=== PATIENT | female | born 1970 | race Caucasian/White ===

== ENCOUNTER 2022-02-10 15:03 | Inpatient (IN) | payer MEDICARE, MEDICAID ==
[~2022-02-10] VITALS: Ht 152.4 cm; Wt 62.6 kg
[~2022-02-10 15:03] MED LIST: ATIVAN; TNFMISC
[2022-02-10] MEDS ORDERED: HALOPERIDOL 5 MG TABLET PO PRN (17:00)
[2022-02-10] MEDS ORDERED: LORazepam 2 MG TABLET PO PRN (17:00)
[2022-02-10] MEDS ORDERED: ACET-66 PO (17:07)
[2022-02-10] MEDS ORDERED: TRAZ-257 PO (17:07)
[2022-02-10 18:12] VITALS: BP 116/86
[2022-02-10] MEDS ORDERED: PNEUMOCOCCAL VACCINE POLYVALENT 0.5 ML VIAL [PPSV23] IM. ONE (18:45)
[2022-02-10 22:17] VITALS: BP 116/85
[2022-02-10 22:56] LABS: GLUCOMETER DEV NAME(LOC) POC.BV
[2022-02-11 05:28] VITALS: BP 113/82
[2022-02-11 07:15] LABS: BASOPHILS % (AUTO) 0.5 % (0.0-2.0); HEMATOCRIT 40.1 % (36-46); HEMOGLOBIN 13.6 g/dL (12.0-16.0); LYMPHOCYTES # (AUTO) 2.7 K/uL (1.0-4.8); LYMPHOCYTES % (AUTO) 39.8 % (22.0-44.0); MEAN CORPUSCULAR HEMOGLOBIN 31.8 pg (26.0-34.0); MEAN CORPUSCULAR HGB CONC 33.9 G/dL (31.0-37.0); MEAN CORPUSCULAR VOLUME 94 fL (80-100); MONOCYTES # (AUTO) 0.5 K/uL (0.1-1.0); MONOCYTES % (AUTO) 8.1 % (2.0-9.0); NEUTROPHILS # (AUTO) 3.4 K/uL (1.8-7.7); NEUTROPHILS % (AUTO) 50.6 % (40.0-70.0); PLATELET COUNT (AUTO) 194 K/uL (150-450); RED BLOOD CELL COUNT(AUTO) 4.28 MIL/uL (4.00-5.20); RED CELL DISTRIBUTION WIDTH 12.1 % (11.5-14.5)
[2022-02-11 07:25] LABS: HEMOGLOBIN A1C 7.3 % (3.8-5.6)
[2022-02-11 07:40] LABS: ALANINE AMINOTRANSFERASE 49 U/L (12-78); ALBUMIN 3.6 g/dL (3.4-5.0); ALKALINE PHOSPHATASE 73 U/L (46-116); ANION GAP 9 mmol/L (8-16); ASPARTATE AMINOTRANSFERASE 19 U/L (15-37); BILIRUBIN,TOTAL 0.6 mg/dL (0.1-1.0); CALCIUM, TOTAL 8.9 mg/dL (8.8-10.5); CARBON DIOXIDE 29 mmol/L (22-29); CHLORIDE 105 mmol/L (98-107); CHOL/HDL RATIO 3.6 (3.9-5.7); CHOLESTEROL 177 mg/dL (131-200); CREATININE 0.74 mg/dL (0.60-1.30); FREE T4 (FREE THYROXINE) 1.55 ng/dL (0.76-1.46); GLOMERULAR FILTR. RATE CALC > 60 mL/min (>60); GLUCOSE,RANDOM 137 mg/dL (70-110); HDL CHOLESTEROL 49 mg/dL (40-60); LDL CHOL (CALC.) 115 mg/dL (0-130); POTASSIUM 3.5 mmol/L (3.5-5.1); SODIUM SERUM 143 mmol/L (136-145); THYROID STIMULATING HORMONE 0.78 uIU/mL (0.36-3.74); TOTAL PROTEIN, SERUM 7.1 g/dL (6.4-8.2); TRIGLYCERIDES 66 mg/dL (15-150); UREA NITROGEN, BLOOD 13 mg/dL (7-18)
[2022-02-11 08:07] VITALS: BP 114/68
[2022-02-11] MEDS ORDERED: PETROLATUM,WHITE 28 GM JELLY TP PRN (08:45)
[2022-02-11] MEDS ORDERED: MAGNESIUM HYDROXIDE SUSPENSION 30 ML UDCUP PO PRN (08:45)
[2022-02-11] MEDS ORDERED: OMEPRAZOLE 20 MG CAPSULE PO PRN (08:45)
[2022-02-11] MEDS ORDERED: ACETAMINOPHEN 325 MG TABLET PO PRN (08:45)
[2022-02-11] MEDS ORDERED: MAG HYDROX/AL HYDROX/SIMETH ES 30 ML SUSPENSION UDCUP PO PRN (08:45)
[2022-02-11] MEDS ORDERED: BACITRACIN 28 GM OINTMENT TP PRN (08:45)
[2022-02-11] MEDS ORDERED: CloNIDine HCL 0.1 MG TABLET PO PRN (08:45)
[2022-02-11] MEDS ORDERED: IBUPROFEN 600 MG TABLET PO PRN (08:45)
[2022-02-11] MEDS ORDERED: ALBUTEROL SULFATE HFA 90 MCG/PUFF 8 GM INHALER IH PRN (08:45)
[2022-02-11] MEDS ORDERED: BENZOCAINE/MENTHOL LOZENGE PO PRN (08:45)
[2022-02-11] MEDS ORDERED: DOCUSATE SODIUM 100 MG CAPSULE PO PRN (08:45)
[2022-02-11] MEDS ORDERED: LOPERAMIDE HCL 2 MG CAPSULE PO PRN (08:45)
[2022-02-11] MEDS ORDERED: ONDANSETRON HCL 4 MG TABLET PO PRN (08:45)
[2022-02-11 16:12] VITALS: BP 130/66
[2022-02-11] MEDS ORDERED: GLUCAGON,HUMAN RECOMBINANT 1 MG VIAL IM PRN (23:45)
[2022-02-12 00:24] VITALS: BP 132/70
[2022-02-12 08:35] VITALS: BP 122/72
[2022-02-12 16:09] VITALS: BP 106/64
[2022-02-12 16:51] LABS: GLUCOMETER DEV NAME(LOC) BV2X.2; GLUCOSE,POINT OF CARE 204 MG/DL (70-110)
[2022-02-12] MEDS: INSULIN LISPRO 100 UNITS/ML SQ PRN ×2 (17:02→20:54)
[2022-02-12] MEDS: ZOLPIDEM TARTRATE 10 MG TABLET PO PRN (20:59)
[2022-02-12 21:01] LABS: GLUCOMETER DEV NAME(LOC) BV2X.2; GLUCOSE,POINT OF CARE 180 MG/DL (70-110)
[2022-02-13 06:25] VITALS: BP 101/60
[2022-02-13 06:36] LABS: GLUCOMETER DEV NAME(LOC) BV2X.2; GLUCOSE,POINT OF CARE 149 MG/DL (70-110)
[2022-02-13] MEDS: INSULIN LISPRO 100 UNITS/ML SQ PRN ×4 (07:12→20:27)
[2022-02-13 08:08] VITALS: BP 124/69
[2022-02-13 11:26] LABS: GLUCOMETER DEV NAME(LOC) BV2X.2; GLUCOSE,POINT OF CARE 152 MG/DL (70-110)
[2022-02-13 16:18] VITALS: BP 140/82
[2022-02-13 16:36] LABS: GLUCOMETER DEV NAME(LOC) BV2X.2; GLUCOSE,POINT OF CARE 166 MG/DL (70-110)
[2022-02-13] MEDS: ZOLPIDEM TARTRATE 10 MG TABLET PO PRN (20:24)
[2022-02-13 20:36] LABS: GLUCOMETER DEV NAME(LOC) BV2X.2; GLUCOSE,POINT OF CARE 179 MG/DL (70-110)
[2022-02-14 00:07] VITALS: BP 135/90
[2022-02-14] MEDS: INSULIN LISPRO 100 UNITS/ML SQ PRN ×4 (06:15→21:01)
[2022-02-14 06:21] LABS: GLUCOMETER DEV NAME(LOC) BV2X.2; GLUCOSE,POINT OF CARE 149 MG/DL (70-110)
[2022-02-14 08:13] VITALS: BP 130/69
[2022-02-14 11:21] LABS: GLUCOMETER DEV NAME(LOC) BV2X.2; GLUCOSE,POINT OF CARE 195 MG/DL (70-110)
[2022-02-14 16:05] VITALS: BP 118/76
[2022-02-14 17:05] LABS: GLUCOMETER DEV NAME(LOC) BV2X.2; GLUCOSE,POINT OF CARE 176 MG/DL (70-110)
[2022-02-14 21:11] LABS: GLUCOMETER DEV NAME(LOC) BV2X.2; GLUCOSE,POINT OF CARE 174 MG/DL (70-110)
[2022-02-15 07:02] VITALS: BP 138/62
[2022-02-15] MEDS: INSULIN LISPRO 100 UNITS/ML SQ PRN ×4 (07:12→20:25)
[2022-02-15 07:20] LABS: GLUCOMETER DEV NAME(LOC) BV2X.2; GLUCOSE,POINT OF CARE 154 MG/DL (70-110)
[2022-02-15 08:11] VITALS: BP 122/74
[2022-02-15 11:43] LABS: GLUCOMETER DEV NAME(LOC) POC.BV
[2022-02-15 11:44] LABS: GLUCOMETER DEV NAME(LOC) BV2X.2; GLUCOSE,POINT OF CARE 147 MG/DL (70-110)
[2022-02-15 16:11] VITALS: BP 101/74
[2022-02-15 16:46] LABS: GLUCOMETER DEV NAME(LOC) BV2X.2; GLUCOSE,POINT OF CARE 213 MG/DL (70-110)
[2022-02-15 20:40] LABS: GLUCOMETER DEV NAME(LOC) BV2X.2; GLUCOSE,POINT OF CARE 210 MG/DL (70-110)
[2022-02-16 00:45] VITALS: BP 106/72
[2022-02-16 06:36] LABS: GLUCOMETER DEV NAME(LOC) BV2X.2; GLUCOSE,POINT OF CARE 149 MG/DL (70-110)
[2022-02-16] MEDS: INSULIN LISPRO 100 UNITS/ML SQ PRN ×4 (06:40→20:56)
[2022-02-16 08:26] VITALS: BP 137/55
[2022-02-16 11:11] LABS: GLUCOMETER DEV NAME(LOC) BV2X.2; GLUCOSE,POINT OF CARE 242 MG/DL (70-110)
[2022-02-16 16:36] LABS: GLUCOMETER DEV NAME(LOC) BV2X.2; GLUCOSE,POINT OF CARE 154 MG/DL (70-110)
[2022-02-16] MEDS: MUPIROCIN CALCIUM 2% 22 GM OINTMENT TP SCH (16:47)
[2022-02-16 17:07] VITALS: BP 132/74
[2022-02-16 21:11] LABS: GLUCOMETER DEV NAME(LOC) BV2X.2; GLUCOSE,POINT OF CARE 167 MG/DL (70-110)
[2022-02-17 01:30] VITALS: BP 121/73
[2022-02-17 06:31] LABS: GLUCOMETER DEV NAME(LOC) BV2X.2; GLUCOSE,POINT OF CARE 144 MG/DL (70-110)
[2022-02-17] MEDS: INSULIN LISPRO 100 UNITS/ML SQ PRN ×4 (06:50→20:41)
[2022-02-17] MEDS: MUPIROCIN CALCIUM 2% 22 GM OINTMENT TP SCH ×2 (08:00→17:27)
[2022-02-17 08:32] VITALS: BP 113/68
[2022-02-17 16:23] VITALS: BP 134/71
[2022-02-17 16:41] LABS: GLUCOMETER DEV NAME(LOC) BV2X.2; GLUCOSE,POINT OF CARE 175 MG/DL (70-110)
[2022-02-17 20:51] LABS: GLUCOMETER DEV NAME(LOC) BV2X.2; GLUCOSE,POINT OF CARE 147 MG/DL (70-110)
[2022-02-18 00:42] VITALS: BP 140/69
[2022-02-18 06:31] LABS: GLUCOMETER DEV NAME(LOC) BV2X.2; GLUCOSE,POINT OF CARE 117 MG/DL (70-110)
[2022-02-18] MEDS: MUPIROCIN CALCIUM 2% 22 GM OINTMENT TP SCH ×2 (08:00→16:55)
[2022-02-18 08:07] VITALS: BP 110/68
[2022-02-18] MEDS: INSULIN LISPRO 100 UNITS/ML SQ PRN ×3 (11:11→20:37)
[2022-02-18 11:26] LABS: GLUCOMETER DEV NAME(LOC) BV2X.2; GLUCOSE,POINT OF CARE 177 MG/DL (70-110)
[2022-02-18 16:00] VITALS: BP 127/65
[2022-02-18 16:30] LABS: GLUCOMETER DEV NAME(LOC) BV2X.2; GLUCOSE,POINT OF CARE 161 MG/DL (70-110)
[2022-02-18 20:31] LABS: GLUCOMETER DEV NAME(LOC) BV2X.2; GLUCOSE,POINT OF CARE 218 MG/DL (70-110)
[2022-02-19 01:01] VITALS: BP 121/76
[2022-02-19 06:36] LABS: GLUCOMETER DEV NAME(LOC) BV2X.2; GLUCOSE,POINT OF CARE 142 MG/DL (70-110)
[2022-02-19] MEDS: INSULIN LISPRO 100 UNITS/ML SQ PRN ×2 (06:38→11:08)
[2022-02-19 08:05] VITALS: BP 140/78
[2022-02-19] MEDS: MUPIROCIN CALCIUM 2% 22 GM OINTMENT TP SCH (08:27)
[2022-02-19 11:16] LABS: GLUCOMETER DEV NAME(LOC) BV2X.2; GLUCOSE,POINT OF CARE 205 MG/DL (70-110)
== END 2022-02-19 13:17 | disposition home or self-care (01) | DRG 885 ==
LOC: B2X 16:43
PROVIDERS: ADMIT Psychiatry & Neurology Psychiatry; ATTEND Psychiatry & Neurology Psychiatry
DX: F25.9 Schizoaffective disorder, unspecified (principal); E11.65 Type 2 diabetes mellitus with hyperglycemia; F15.10 Other stimulant abuse, uncomplicated; F41.9 Anxiety disorder, unspecified; G47.00 Insomnia, unspecified; K59.00 Constipation, unspecified; F32.A Depression, unspecified; M54.9 Dorsalgia, unspecified; Z20.822 Contact with and (suspected) exposure to COVID-19; Z28.21 Immunization not carried out because of patient refusal; Z79.4 Long term (current) use of insulin
CPT/HCPCS: 80053; 80061; 82962; 83036; 84439; 84443; 85025

== ENCOUNTER 2023-07-24 22:33 | Inpatient (IN) | payer MEDICARE, MEDICAID ==
[~2023-07-24] VITALS: Ht 152.4 cm; Wt 65.8 kg
[~2023-07-24 22:33] MED LIST changes: -ATIVAN; +CEPH-558 PO; +FLUO20CA36 PO; +RISP2TAB45 PO; -TNFMISC
[2023-07-24 23:18] LABS: BASOPHILS % (AUTO) 0.7 % (0.0-2.0); EOSINOPHILS % (AUTO) 0.5 % (1.0-6.0); HEMATOCRIT 41.1 % (36-46); HEMOGLOBIN 13.9 g/dL (12.0-16.0); LYMPHOCYTES # (AUTO) 2.3 K/uL (1.0-4.8); LYMPHOCYTES % (AUTO) 32.6 % (22.0-44.0); MEAN CORPUSCULAR HEMOGLOBIN 32.6 pg (26.0-34.0); MEAN CORPUSCULAR HGB CONC 33.9 G/dL (31.0-37.0); MEAN CORPUSCULAR VOLUME 96 fL (80-100); MONOCYTES # (AUTO) 0.5 K/uL (0.1-1.0); MONOCYTES % (AUTO) 7.8 % (2.0-9.0); NEUTROPHILS % (AUTO) 58.4 % (40.0-70.0); PLATELET COUNT (AUTO) 191 K/uL (150-450); RED BLOOD CELL COUNT(AUTO) 4.28 MIL/uL (4.00-5.20); RED CELL DISTRIBUTION WIDTH 12.9 % (11.5-14.5); WHITE BLOOD COUNT (AUTO) 6.9 K/uL (4.5-11.0)
[2023-07-24 23:19] LABS: ANION GAP 10 mmol/L (8-16); CALCIUM, TOTAL 8.9 mg/dL (8.8-10.5); CARBON DIOXIDE 26 mmol/L (22-29); CHLORIDE 103 mmol/L (98-107); GLOMERULAR FILTR. RATE CALC > 60 mL/min (>60); GLUCOSE,RANDOM 360 mg/dL (70-110); POTASSIUM 4.1 mmol/L (3.5-5.1); SODIUM SERUM 139 mmol/L (136-145); UREA NITROGEN, BLOOD 12 mg/dL (7-18)
[2023-07-24 23:25] LABS: ALANINE AMINOTRANSFERASE 82 U/L (12-78); ALBUMIN 3.2 g/dL (3.4-5.0); ALKALINE PHOSPHATASE 79 U/L (46-116); ASPARTATE AMINOTRANSFERASE 45 U/L (15-37); BILIRUBIN,TOTAL 0.2 mg/dL (0.1-1.0); TOTAL PROTEIN, SERUM 6.4 g/dL (6.4-8.2)
[2023-07-24 23:26] LABS: ALCOHOL, URINE DRUG SCREEN NEGATIVE (NEGATIVE); AMPHET/METH SCREEN,URINE NEGATIVE (NEGATIVE); BARBITURATE SCREEN, URINE NEGATIVE (NEGATIVE); BENZODIAZEPINES SCREEN,URINE NEGATIVE (NEGATIVE); CANNABINOID SCREEN,URINE NEGATIVE (NEGATIVE); COCAINE SCREEN,URINE NEGATIVE (NEGATIVE); METHADONE SCREEN, URINE NEGATIVE (NEGATIVE); OPIATE SCREEN,URINE NEGATIVE (NEGATIVE); PHENCYCLIDINE SCREEN,URINE NEGATIVE (NEGATIVE)
[2023-07-24] MEDS ORDERED: LORazepam 2 MG TABLET PO PRN (23:30)
[2023-07-24] MEDS ORDERED: ZOLPIDEM TARTRATE 10 MG TABLET PO PRN (23:30)
[2023-07-24] MEDS ORDERED: HALOPERIDOL 5 MG TABLET PO PRN (23:30)
[2023-07-24 23:33] LABS: ALCOHOL, BLOOD (SERUM) < 3 mg/dL (0-10)
[2023-07-25 03:11] LABS: APPEARANCE,URINE CLEAR (CLEAR); BILIRUBIN,URINE NEGATIVE (NEGATIVE); COLOR,URINE LIGHT YELLOW (YELLOW); GLUCOSE, URINE (UA) >=1000 mg/dL (NEGATIVE); KETONES,URINE TRACE mg/dL (NEGATIVE); LEUKOCYTE ESTERASE ,URINE LARGE (NEGATIVE); NITRATE,URINE NEGATIVE (NEGATIVE); OCCULT BLOOD,URINE NEGATIVE (NEGATIVE); PROTEIN,URINE NEGATIVE (NEGATIVE); SPECIFIC GRAVITIY, URINE 1.033 (1.003-1.030); UROBILINOGEN,URINE <=1.0 mg/dL (<=1.0)
[2023-07-25 03:16] LABS: RBC,URINE 0-2 /HPF (0-2); WBC,URINE 26-50 /HPF (0-5)
[2023-07-25 03:17] LABS: BACTERIA,URINE Few /HPF (None Seen); SQUAMOUS EPITHELIAL CELL,UR Few /LPF (None Seen)
[2023-07-25] MEDS ORDERED: CEPHALEXIN MONOHYDRATE 500 MG CAPSULE PO ONE (05:45)
[2023-07-25 06:26] LABS: COVID AG,FIA SOURCE NASAL SWAB
[2023-07-25 06:59] LABS: SARS-COV2 (COVID) ANTIGEN,FIA Negative (Negative)
[2023-07-25] MEDS ORDERED: PNEUMOCOCCAL VACCINE POLYVALENT 0.5 ML SYRINGE [PPSV23] IM. ONE (19:30)
[2023-07-25 20:47] VITALS: BP 106/65; PULSE 66; RESP 18; TEMP 97.5; O2SAT 98
[2023-07-25] MEDS ORDERED: LOPERAMIDE HCL 2 MG CAPSULE PO PRN (21:00)
[2023-07-25] MEDS ORDERED: ONDANSETRON HCL 4 MG TABLET PO PRN (21:00)
[2023-07-25] MEDS ORDERED: PETROLATUM,WHITE 28 GM JELLY TP PRN (21:00)
[2023-07-25] MEDS ORDERED: OMEPRAZOLE 20 MG CAPSULE PO PRN (21:00)
[2023-07-25] MEDS ORDERED: GLUCAGON,HUMAN RECOMBINANT 1 MG VIAL IM PRN (21:00)
[2023-07-25] MEDS ORDERED: ACETAMINOPHEN 325 MG TABLET PO PRN (21:00)
[2023-07-25] MEDS ORDERED: BENZOCAINE/MENTHOL LOZENGE PO PRN (21:00)
[2023-07-25] MEDS ORDERED: CloNIDine HCL 0.1 MG TABLET PO PRN (21:00)
[2023-07-25] MEDS ORDERED: MAGNESIUM HYDROXIDE SUSPENSION 30 ML UDCUP PO PRN (21:00)
[2023-07-25] MEDS ORDERED: DOCUSATE SODIUM 100 MG CAPSULE PO PRN (21:00)
[2023-07-25] MEDS ORDERED: ALBUTEROL SULFATE HFA 90 MCG/PUFF 8 GM INHALER IH PRN (21:00)
[2023-07-25] MEDS ORDERED: BACITRACIN 28 GM OINTMENT TP PRN (21:00)
[2023-07-25] MEDS ORDERED: IBUPROFEN 600 MG TABLET PO PRN (21:00)
[2023-07-25] MEDS ORDERED: MAG HYDROX/AL HYDROX/SIMETH ES 30 ML SUSPENSION UDCUP PO PRN (21:00)
[2023-07-25] MEDS: INSULIN LISPRO 100 UNITS/ML SQ PRN (21:50)
[2023-07-26 05:31] LABS: GLUCOMETER DEV NAME(LOC) BV2X.2; GLUCOSE,POINT OF CARE 311 MG/DL (70-110)
[2023-07-26 06:26] LABS: GLUCOMETER DEV NAME(LOC) BV2X.2; GLUCOSE,POINT OF CARE 219 MG/DL (70-110)
[2023-07-26] MEDS: MetFORMIN HCL 500 MG TABLET PO SCH ×2 (06:45→16:41)
[2023-07-26] MEDS: INSULIN LISPRO 100 UNITS/ML SQ PRN ×4 (06:46→20:43)
[2023-07-26 08:03] LABS: HEMOGLOBIN A1C 7.9 % (3.8-5.6)
[2023-07-26] MEDS: CEPHALEXIN MONOHYDRATE 500 MG CAPSULE PO SCH ×2 (08:12→16:41)
[2023-07-26 08:18] LABS: CHOL/HDL RATIO 4.9 (3.9-5.7); THYROID STIMULATING HORMONE 0.82 uIU/mL (0.36-3.74)
[2023-07-26 08:30] VITALS: BP 128/60; PULSE 70; RESP 17; TEMP 97.7; O2SAT 95
[2023-07-26 11:30] LABS: GLUCOMETER DEV NAME(LOC) BV2X.2; GLUCOSE,POINT OF CARE 287 MG/DL (70-110)
[2023-07-26 17:00] LABS: GLUCOMETER DEV NAME(LOC) BV2X.2; GLUCOSE,POINT OF CARE 258 MG/DL (70-110)
[2023-07-26 20:31] LABS: GLUCOMETER DEV NAME(LOC) BV2X.2; GLUCOSE,POINT OF CARE 252 MG/DL (70-110)
[2023-07-26 20:33] VITALS: BP 114/60; PULSE 72; RESP 17; TEMP 98; O2SAT 98
[2023-07-27 06:21] LABS: GLUCOMETER DEV NAME(LOC) BV2X.2; GLUCOSE,POINT OF CARE 209 MG/DL (70-110)
[2023-07-27] MEDS: INSULIN LISPRO 100 UNITS/ML SQ PRN ×4 (06:51→20:48)
[2023-07-27] MEDS: MetFORMIN HCL 500 MG TABLET PO SCH ×2 (07:01→16:38)
[2023-07-27 08:00] VITALS: BP 114/61; PULSE 68; RESP 16; TEMP 97.5; O2SAT 98
[2023-07-27] MEDS: CEPHALEXIN MONOHYDRATE 500 MG CAPSULE PO SCH ×2 (08:29→16:38)
[2023-07-27 11:31] LABS: GLUCOMETER DEV NAME(LOC) BV2X.2; GLUCOSE,POINT OF CARE 217 MG/DL (70-110)
[2023-07-27 16:46] LABS: GLUCOMETER DEV NAME(LOC) BV2X.2; GLUCOSE,POINT OF CARE 225 MG/DL (70-110)
[2023-07-27 20:11] VITALS: BP 122/72; PULSE 74; RESP 17; TEMP 97.8; O2SAT 97
[2023-07-27 20:21] LABS: GLUCOMETER DEV NAME(LOC) BV2X.2; GLUCOSE,POINT OF CARE 262 MG/DL (70-110)
[2023-07-28 06:36] LABS: GLUCOMETER DEV NAME(LOC) BV2X.2; GLUCOSE,POINT OF CARE 221 MG/DL (70-110)
[2023-07-28] MEDS: MetFORMIN HCL 500 MG TABLET PO SCH ×2 (06:46→16:30)
[2023-07-28] MEDS: INSULIN LISPRO 100 UNITS/ML SQ PRN ×4 (06:58→20:23)
[2023-07-28 08:03] VITALS: BP 122/63; PULSE 60; RESP 16; TEMP 97.9; O2SAT 97
[2023-07-28] MEDS: CEPHALEXIN MONOHYDRATE 500 MG CAPSULE PO SCH ×2 (08:17→16:30)
[2023-07-28 11:41] LABS: GLUCOMETER DEV NAME(LOC) BV2X.2; GLUCOSE,POINT OF CARE 188 MG/DL (70-110)
[2023-07-28 16:21] LABS: GLUCOMETER DEV NAME(LOC) BV2X.2; GLUCOSE,POINT OF CARE 239 MG/DL (70-110)
[2023-07-28] MEDS: OLANZapine 10 MG TABLET PO SCH (20:05)
[2023-07-28 20:16] LABS: GLUCOMETER DEV NAME(LOC) BV2X.2; GLUCOSE,POINT OF CARE 236 MG/DL (70-110)
[2023-07-28 20:44] VITALS: BP 118/60; PULSE 62; RESP 18; TEMP 97.6; O2SAT 98
[2023-07-29] MEDS: MetFORMIN HCL 500 MG TABLET PO SCH ×2 (06:23→16:40)
[2023-07-29] MEDS: INSULIN LISPRO 100 UNITS/ML SQ PRN ×4 (06:23→20:48)
[2023-07-29 06:26] LABS: GLUCOMETER DEV NAME(LOC) BV2X.2; GLUCOSE,POINT OF CARE 245 MG/DL (70-110)
[2023-07-29 08:33] VITALS: BP 126/70; PULSE 75; RESP 16; TEMP 97.6; O2SAT 96
[2023-07-29] MEDS: CEPHALEXIN MONOHYDRATE 500 MG CAPSULE PO SCH ×2 (08:42→16:40)
[2023-07-29 11:32] LABS: GLUCOMETER DEV NAME(LOC) BV2X.2; GLUCOSE,POINT OF CARE 227 MG/DL (70-110)
[2023-07-29 16:36] LABS: GLUCOMETER DEV NAME(LOC) BV2X.2; GLUCOSE,POINT OF CARE 190 MG/DL (70-110)
[2023-07-29] MEDS: OLANZapine 10 MG TABLET PO SCH (20:30)
[2023-07-29 20:31] LABS: GLUCOMETER DEV NAME(LOC) BV2X.2; GLUCOSE,POINT OF CARE 229 MG/DL (70-110)
[2023-07-29 20:56] VITALS: BP 109/65; PULSE 62; RESP 16; TEMP 98.2; O2SAT 96
[2023-07-30] MEDS: INSULIN LISPRO 100 UNITS/ML SQ PRN ×3 (05:52→20:49)
[2023-07-30 05:56] LABS: GLUCOMETER DEV NAME(LOC) BV2X.2; GLUCOSE,POINT OF CARE 215 MG/DL (70-110)
[2023-07-30] MEDS: MetFORMIN HCL 500 MG TABLET PO SCH ×2 (06:06→16:41)
[2023-07-30] MEDS: CEPHALEXIN MONOHYDRATE 500 MG CAPSULE PO SCH ×2 (08:17→16:41)
[2023-07-30 08:38] VITALS: BP 113/61; PULSE 62; RESP 17; TEMP 97.6; O2SAT 97
[2023-07-30 13:41] LABS: GLUCOMETER DEV NAME(LOC) BV2X.2; GLUCOSE,POINT OF CARE 325 MG/DL (70-110)
[2023-07-30 16:36] LABS: GLUCOMETER DEV NAME(LOC) BV2X.2; GLUCOSE,POINT OF CARE 253 MG/DL (70-110)
[2023-07-30 20:26] LABS: GLUCOMETER DEV NAME(LOC) BV2X.2; GLUCOSE,POINT OF CARE 252 MG/DL (70-110)
[2023-07-30] MEDS: OLANZapine 10 MG TABLET PO SCH (20:28)
[2023-07-30 21:29] VITALS: BP 115/67; PULSE 68; RESP 18; TEMP 97.6; O2SAT 98
[2023-07-31] MEDS: MetFORMIN HCL 500 MG TABLET PO SCH ×2 (06:06→16:38)
[2023-07-31] MEDS: INSULIN LISPRO 100 UNITS/ML SQ PRN ×4 (06:09→21:03)
[2023-07-31 06:16] LABS: GLUCOMETER DEV NAME(LOC) BV2X.2; GLUCOSE,POINT OF CARE 261 MG/DL (70-110)
[2023-07-31] MEDS: CEPHALEXIN MONOHYDRATE 500 MG CAPSULE PO SCH ×2 (08:29→16:38)
[2023-07-31 09:56] VITALS: BP 105/60; PULSE 65; RESP 16; TEMP 98.1; O2SAT 96
[2023-07-31 11:51] LABS: GLUCOMETER DEV NAME(LOC) BV2X.2; GLUCOSE,POINT OF CARE 232 MG/DL (70-110)
[2023-07-31 16:32] LABS: GLUCOMETER DEV NAME(LOC) BV2X.2; GLUCOSE,POINT OF CARE 221 MG/DL (70-110)
[2023-07-31] MEDS: OLANZapine 10 MG TABLET PO SCH (20:33)
[2023-07-31 20:35] LABS: GLUCOMETER DEV NAME(LOC) BV2X.2; GLUCOSE,POINT OF CARE 261 MG/DL (70-110)
[2023-07-31 20:50] VITALS: BP 127/76; PULSE 77; RESP 18; TEMP 97.9; O2SAT 97
[2023-08-01] MEDS: MetFORMIN HCL 500 MG TABLET PO SCH ×2 (06:28→16:31)
[2023-08-01] MEDS: INSULIN LISPRO 100 UNITS/ML SQ PRN ×4 (06:30→20:23)
[2023-08-01 06:36] LABS: GLUCOMETER DEV NAME(LOC) BV2X.2; GLUCOSE,POINT OF CARE 216 MG/DL (70-110)
[2023-08-01 08:23] VITALS: BP 132/73; PULSE 61; RESP 18; TEMP 97.7; O2SAT 97
[2023-08-01] MEDS: CEPHALEXIN MONOHYDRATE 500 MG CAPSULE PO SCH ×2 (08:40→16:31)
[2023-08-01 11:36] LABS: GLUCOMETER DEV NAME(LOC) BV2X.2; GLUCOSE,POINT OF CARE 297 MG/DL (70-110)
[2023-08-01 16:36] LABS: GLUCOMETER DEV NAME(LOC) BV2X.2; GLUCOSE,POINT OF CARE 307 MG/DL (70-110)
[2023-08-01 20:12] VITALS: BP 122/68; PULSE 72; RESP 16; TEMP 97.6; O2SAT 98
[2023-08-01] MEDS: OLANZapine 10 MG TABLET PO SCH (20:18)
[2023-08-01 20:31] LABS: GLUCOMETER DEV NAME(LOC) BV2X.2; GLUCOSE,POINT OF CARE 274 MG/DL (70-110)
[2023-08-02 06:31] LABS: GLUCOMETER DEV NAME(LOC) BV2X.2; GLUCOSE,POINT OF CARE 292 MG/DL (70-110)
[2023-08-02] MEDS: MetFORMIN HCL 500 MG TABLET PO SCH ×2 (06:42→17:03)
[2023-08-02] MEDS: INSULIN LISPRO 100 UNITS/ML SQ PRN ×4 (06:44→20:37)
[2023-08-02 08:11] VITALS: BP 100/60; PULSE 67; RESP 18; TEMP 98; O2SAT 98
[2023-08-02 11:26] LABS: GLUCOMETER DEV NAME(LOC) BV2X.2; GLUCOSE,POINT OF CARE 237 MG/DL (70-110)
[2023-08-02 16:41] LABS: GLUCOMETER DEV NAME(LOC) BV2X.2; GLUCOSE,POINT OF CARE 330 MG/DL (70-110)
[2023-08-02] MEDS: OLANZapine 10 MG TABLET PO SCH (20:30)
[2023-08-02 20:41] LABS: GLUCOMETER DEV NAME(LOC) BV2X.2; GLUCOSE,POINT OF CARE 201 MG/DL (70-110)
[2023-08-02 20:42] VITALS: BP 105/67; PULSE 77; RESP 18; TEMP 98.2; O2SAT 97
[2023-08-03] MEDS: MetFORMIN HCL 500 MG TABLET PO SCH ×2 (06:18→17:00)
[2023-08-03] MEDS: INSULIN LISPRO 100 UNITS/ML SQ PRN ×4 (06:19→21:05)
[2023-08-03 06:26] LABS: GLUCOMETER DEV NAME(LOC) BV2X.2; GLUCOSE,POINT OF CARE 245 MG/DL (70-110)
[2023-08-03 09:07] VITALS: BP 104/65; PULSE 73; RESP 16; TEMP 97.8; O2SAT 97
[2023-08-03 12:01] LABS: GLUCOMETER DEV NAME(LOC) BV2X.2; GLUCOSE,POINT OF CARE 272 MG/DL (70-110)
[2023-08-03 16:42] LABS: GLUCOMETER DEV NAME(LOC) BV2S.; GLUCOSE,POINT OF CARE 299 MG/DL (70-110)
[2023-08-03 20:02] LABS: GLUCOMETER DEV NAME(LOC) BV2X.2; GLUCOSE,POINT OF CARE 309 MG/DL (70-110)
[2023-08-03] MEDS: OLANZapine 10 MG TABLET PO SCH (20:11)
[2023-08-03 20:55] VITALS: BP 103/63; PULSE 80; RESP 18; TEMP 97.8; O2SAT 96
[2023-08-04] MEDS: MetFORMIN HCL 500 MG TABLET PO SCH ×2 (06:03→16:47)
[2023-08-04] MEDS: INSULIN LISPRO 100 UNITS/ML SQ PRN ×4 (06:30→20:16)
[2023-08-04 06:32] LABS: GLUCOMETER DEV NAME(LOC) BV2X.2; GLUCOSE,POINT OF CARE 280 MG/DL (70-110)
[2023-08-04 08:34] VITALS: BP 112/60; PULSE 77; RESP 16; TEMP 97.9; O2SAT 98
[2023-08-04 11:02] LABS: GLUCOMETER DEV NAME(LOC) BV2X.2; GLUCOSE,POINT OF CARE 296 MG/DL (70-110)
[2023-08-04 16:37] LABS: GLUCOMETER DEV NAME(LOC) BV2X.2; GLUCOSE,POINT OF CARE 390 MG/DL (70-110)
[2023-08-04 17:33] VITALS: BP 118/76; PULSE 75; RESP 18; TEMP 97.7; O2SAT 96
[2023-08-04 19:52] LABS: GLUCOMETER DEV NAME(LOC) BV2X.2; GLUCOSE,POINT OF CARE 311 MG/DL (70-110)
[2023-08-04 20:00] VITALS: BP 120/79; PULSE 70; RESP 18; TEMP 97.7; O2SAT 97
[2023-08-04] MEDS: OLANZapine 10 MG TABLET PO SCH (20:01)
[2023-08-05] MEDS: MetFORMIN HCL 500 MG TABLET PO SCH ×2 (06:03→16:37)
[2023-08-05] MEDS: INSULIN LISPRO 100 UNITS/ML SQ PRN ×4 (06:25→20:42)
[2023-08-05 06:28] LABS: GLUCOMETER DEV NAME(LOC) BV2X.2; GLUCOSE,POINT OF CARE 211 MG/DL (70-110)
[2023-08-05 08:09] VITALS: BP 103/64; PULSE 71; RESP 17; TEMP 97.9; O2SAT 97
[2023-08-05 11:08] LABS: GLUCOMETER DEV NAME(LOC) BV2X.2; GLUCOSE,POINT OF CARE 301 MG/DL (70-110)
[2023-08-05 16:36] LABS: GLUCOMETER DEV NAME(LOC) BV2X.2; GLUCOSE,POINT OF CARE 352 MG/DL (70-110)
[2023-08-05 20:02] VITALS: BP 114/67; PULSE 78; RESP 18; TEMP 97.7; O2SAT 98
[2023-08-05] MEDS: OLANZapine 10 MG TABLET PO SCH (20:33)
[2023-08-05 20:36] LABS: GLUCOMETER DEV NAME(LOC) BV2X.2; GLUCOSE,POINT OF CARE 287 MG/DL (70-110)
[2023-08-06 06:21] LABS: GLUCOMETER DEV NAME(LOC) BV2X.2; GLUCOSE,POINT OF CARE 246 MG/DL (70-110)
[2023-08-06] MEDS: MetFORMIN HCL 500 MG TABLET PO SCH ×2 (06:42→16:35)
[2023-08-06] MEDS: INSULIN LISPRO 100 UNITS/ML SQ PRN ×4 (06:43→20:32)
[2023-08-06 08:10] VITALS: BP 114/79; PULSE 87; RESP 18; TEMP 97.3; O2SAT 98
[2023-08-06 12:01] LABS: GLUCOMETER DEV NAME(LOC) BV2X.2; GLUCOSE,POINT OF CARE 253 MG/DL (70-110)
[2023-08-06 16:31] LABS: GLUCOMETER DEV NAME(LOC) BV2X.2; GLUCOSE,POINT OF CARE 302 MG/DL (70-110)
[2023-08-06 20:10] VITALS: BP 104/73; PULSE 75; RESP 18; TEMP 97.7; O2SAT 98
[2023-08-06 20:26] LABS: GLUCOMETER DEV NAME(LOC) BV2X.2; GLUCOSE,POINT OF CARE 289 MG/DL (70-110)
[2023-08-06] MEDS: OLANZapine 10 MG TABLET PO SCH (20:27)
[2023-08-07] MEDS: MetFORMIN HCL 500 MG TABLET PO SCH ×2 (06:37→17:39)
[2023-08-07 06:41] LABS: GLUCOMETER DEV NAME(LOC) BV2X.2; GLUCOSE,POINT OF CARE 243 MG/DL (70-110)
[2023-08-07] MEDS: INSULIN LISPRO 100 UNITS/ML SQ PRN ×5 (06:52→20:33)
[2023-08-07 08:12] VITALS: BP 116/70; PULSE 80; RESP 17; TEMP 98.4; O2SAT 97
[2023-08-07 11:26] LABS: GLUCOMETER DEV NAME(LOC) BV2X.2; GLUCOSE,POINT OF CARE 252 MG/DL (70-110)
[2023-08-07 16:56] LABS: GLUCOMETER DEV NAME(LOC) BV2X.2; GLUCOSE,POINT OF CARE 312 MG/DL (70-110)
[2023-08-07] MEDS: OLANZapine 10 MG TABLET PO SCH (20:32)
[2023-08-07 20:41] LABS: GLUCOMETER DEV NAME(LOC) BV2X.2; GLUCOSE,POINT OF CARE 263 MG/DL (70-110)
[2023-08-07 21:36] VITALS: BP 122/76; PULSE 84; RESP 17; TEMP 97; O2SAT 97
[2023-08-08] MEDS: MetFORMIN HCL 500 MG TABLET PO SCH ×2 (06:03→16:09)
[2023-08-08 06:12] LABS: GLUCOMETER DEV NAME(LOC) BV2X.2; GLUCOSE,POINT OF CARE 237 MG/DL (70-110)
[2023-08-08] MEDS: INSULIN LISPRO 100 UNITS/ML SQ PRN ×4 (06:15→20:22)
[2023-08-08 09:13] VITALS: BP 104/61; PULSE 78; RESP 17; TEMP 98.2; O2SAT 95
[2023-08-08 11:36] LABS: GLUCOMETER DEV NAME(LOC) BV2X.2; GLUCOSE,POINT OF CARE 264 MG/DL (70-110)
[2023-08-08 16:41] LABS: GLUCOMETER DEV NAME(LOC) BV2X.2; GLUCOSE,POINT OF CARE 344 MG/DL (70-110)
[2023-08-08] MEDS: OLANZapine 10 MG TABLET PO SCH (20:00)
[2023-08-08 20:02] LABS: GLUCOMETER DEV NAME(LOC) BV2X.2; GLUCOSE,POINT OF CARE 333 MG/DL (70-110)
[2023-08-08 20:59] VITALS: BP 111/77; PULSE 83; RESP 18; TEMP 97.7; O2SAT 98
[2023-08-09] MEDS: MetFORMIN HCL 500 MG TABLET PO SCH (06:03)
[2023-08-09 06:16] LABS: GLUCOMETER DEV NAME(LOC) BV2X.2; GLUCOSE,POINT OF CARE 214 MG/DL (70-110)
[2023-08-09] MEDS: INSULIN LISPRO 100 UNITS/ML SQ PRN ×2 (06:27→11:16)
[2023-08-09 08:02] VITALS: BP 107/65; PULSE 74; RESP 16; TEMP 97.7; O2SAT 97
[2023-08-09 11:31] LABS: GLUCOMETER DEV NAME(LOC) BV2X.2; GLUCOSE,POINT OF CARE 266 MG/DL (70-110)
[2023-08-09] MEDS ORDERED: OLAN10TA74 PO ×2 (12:38→12:42)
[2023-08-09] MEDS ORDERED: DOCU-412 PO (12:44)
== END 2023-08-09 12:25 | disposition home or self-care (01) | DRG 885 ==
LOC: EMS 22:34 → B2X 07-25 15:49
PROVIDERS: ADMIT Psychiatry & Neurology Psychiatry; ATTEND Psychiatry & Neurology Psychiatry
DX: F20.9 Schizophrenia, unspecified (principal); E11.65 Type 2 diabetes mellitus with hyperglycemia; N39.0 Urinary tract infection, site not specified; F41.9 Anxiety disorder, unspecified; Z20.822 Contact with and (suspected) exposure to COVID-19; G47.00 Insomnia, unspecified; K59.00 Constipation, unspecified; F15.10 Other stimulant abuse, uncomplicated; Z28.21 Immunization not carried out because of patient refusal
CPT/HCPCS: 80053; 80061; 80307; 81001; 82962; 83036; 84443; 85025; 87081; 87086; 87186; 99285; G0480

== ENCOUNTER 2024-02-28 17:40 | Emergency (ER) | payer MEDICARE, MEDICAID, OTHER ==
[~2024-02-28] VITALS: Ht 154.9 cm; Wt 61.4 kg
[~2024-02-28 17:40] MED LIST changes: -CEPH-558 PO; +DOCU-412 PO; -FLUO20CA36 PO; +OLAN10TA74 PO; -RISP2TAB45 PO
[2024-02-28 18:01] VITALS: BP 158/77; PULSE 64; RESP 16; TEMP 98.3
[2024-02-28 18:41] LABS: BASOPHILS % (AUTO) 0.6 % (0.0-2.0); EOSINOPHILS % (AUTO) 0.7 % (1.0-6.0); HEMATOCRIT 42.9 % (36-46); HEMOGLOBIN 14.2 g/dL (12.0-16.0); LYMPHOCYTES # (AUTO) 1.8 K/uL (1.0-4.8); LYMPHOCYTES % (AUTO) 28.9 % (22.0-44.0); MEAN CORPUSCULAR HEMOGLOBIN 31.4 pg (26.0-34.0); MEAN CORPUSCULAR VOLUME 95 fL (80-100); MONOCYTES # (AUTO) 0.5 K/uL (0.1-1.0); MONOCYTES % (AUTO) 7.7 % (2.0-9.0); NEUTROPHILS # (AUTO) 3.8 K/uL (1.8-7.7); NEUTROPHILS % (AUTO) 62.1 % (40.0-70.0); PLATELET COUNT (AUTO) 170 K/uL (150-450); RED BLOOD CELL COUNT(AUTO) 4.51 MIL/uL (4.00-5.20); RED CELL DISTRIBUTION WIDTH 13.6 % (11.5-14.5); WHITE BLOOD COUNT (AUTO) 6.1 K/uL (4.5-11.0)
[2024-02-28 18:48] LABS: ALCOHOL, BLOOD (SERUM) < 3 mg/dL (0-10); ANION GAP 9 mmol/L (8-16); CALCIUM, TOTAL 9.1 mg/dL (8.8-10.5); CARBON DIOXIDE 29 mmol/L (22-29); CHLORIDE 100 mmol/L (98-107); CREATININE 0.85 mg/dL (0.60-1.30); GLOMERULAR FILTR. RATE CALC > 60 mL/min (>60); GLUCOSE,RANDOM 344 mg/dL (70-110); POTASSIUM 3.7 mmol/L (3.5-5.1); SODIUM SERUM 138 mmol/L (136-145); UREA NITROGEN, BLOOD 15 mg/dL (7-18)
[2024-02-28 18:54] LABS: ALANINE AMINOTRANSFERASE 35 U/L (12-78); ALBUMIN 3.2 g/dL (3.4-5.0); ALKALINE PHOSPHATASE 76 U/L (46-116); ASPARTATE AMINOTRANSFERASE 20 U/L (15-37); BILIRUBIN,TOTAL 0.3 mg/dL (0.1-1.0); TOTAL PROTEIN, SERUM 6.9 g/dL (6.4-8.2)
== END 2024-02-28 22:14 | disposition left against medical advice (07) ==
LOC: EMS 17:42
DX: Z13.30 Encounter for screening examination for mental health and behavioral disorders, unspecified (principal); Z53.21 Procedure and treatment not carried out due to patient leaving prior to being seen by health care provider
CPT/HCPCS: 80053; 36415; 85025; G0480

== ENCOUNTER 2024-07-24 15:33 | Inpatient (IN) | payer MEDICARE, MEDICAID ==
[~2024-07-24] VITALS: Ht 152.4 cm; Wt 59.5 kg
[2024-07-24 17:33] LABS: BASOPHILS % (AUTO) 0.5 % (0.0-2.0); EOSINOPHILS % (AUTO) 0.7 % (1.0-6.0); HEMATOCRIT 41.9 % (36-46); HEMOGLOBIN 13.9 g/dL (12.0-16.0); LYMPHOCYTES # (AUTO) 2.5 K/uL (1.0-4.8); MEAN CORPUSCULAR HEMOGLOBIN 31.6 pg (26.0-34.0); MEAN CORPUSCULAR HGB CONC 33.3 G/dL (31.0-37.0); MEAN CORPUSCULAR VOLUME 95 fL (80-100); MONOCYTES # (AUTO) 0.4 K/uL (0.1-1.0); MONOCYTES % (AUTO) 8.2 % (2.0-9.0); NEUTROPHILS # (AUTO) 2.2 K/uL (1.8-7.7); NEUTROPHILS % (AUTO) 42.6 % (40.0-70.0); PLATELET COUNT (AUTO) 171 K/uL (150-450); RED BLOOD CELL COUNT(AUTO) 4.41 MIL/uL (4.00-5.20); RED CELL DISTRIBUTION WIDTH 13.2 % (11.5-14.5); WHITE BLOOD COUNT (AUTO) 5.1 K/uL (4.5-11.0)
[2024-07-24 17:46] LABS: ANION GAP 16 mmol/L (8-16); CALCIUM, TOTAL 8.8 mg/dL (8.8-10.5); CARBON DIOXIDE 22 mmol/L (22-29); CHLORIDE 97 mmol/L (98-107); CREATININE 0.77 mg/dL (0.60-1.30); GLOMERULAR FILTR. RATE CALC > 60 mL/min (>60); GLUCOSE,RANDOM 350 mg/dL (70-110); POTASSIUM 3.6 mmol/L (3.5-5.1); SODIUM SERUM 135 mmol/L (136-145); UREA NITROGEN, BLOOD 15 mg/dL (7-18)
[2024-07-24 17:56] LABS: ALCOHOL, BLOOD (SERUM) < 3 mg/dL (0-10)
[2024-07-24 18:10] LABS: COVID AG,FIA SOURCE NASAL SWAB
[2024-07-24 18:34] LABS: SARS-COV2 (COVID) ANTIGEN,FIA Negative (Negative)
[2024-07-24 21:00] LABS: ALCOHOL, URINE DRUG SCREEN NEGATIVE (NEGATIVE); AMPHET/METH SCREEN,URINE POSITIVE (NEGATIVE); BARBITURATE SCREEN, URINE NEGATIVE (NEGATIVE); BENZODIAZEPINES SCREEN,URINE NEGATIVE (NEGATIVE); CANNABINOID SCREEN,URINE NEGATIVE (NEGATIVE); COCAINE SCREEN,URINE NEGATIVE (NEGATIVE); METHADONE SCREEN, URINE NEGATIVE (NEGATIVE); OPIATE SCREEN,URINE NEGATIVE (NEGATIVE); PHENCYCLIDINE SCREEN,URINE NEGATIVE (NEGATIVE)
[2024-07-24] MEDS: LORazepam 1 MG TABLET PO ONE (21:02)
[2024-07-24] MEDS: HALOPERIDOL 5 MG TABLET PO ONE (21:02)
[2024-07-24] MEDS ORDERED: HALOPERIDOL 5 MG TABLET PO PRN (21:15)
[2024-07-24] MEDS ORDERED: LOPERAMIDE HCL 2 MG CAPSULE PO PRN (21:15)
[2024-07-24] MEDS ORDERED: LORazepam 2 MG TABLET PO PRN (21:15)
[2024-07-24] MEDS ORDERED: MAG HYDROX/ALUMINUM HYD/SIMETH ES 30 ML SUSPENSION UDCUP PO PRN (21:15)
[2024-07-24] MEDS ORDERED: MAGNESIUM HYDROXIDE SUSPENSION 30 ML UDCUP PO PRN (21:15)
[2024-07-24] MEDS ORDERED: ACETAMINOPHEN 325 MG TABLET PO PRN (21:15)
[2024-07-24 23:25] VITALS: O2SAT 98
[2024-07-25 00:30] VITALS: BP 111/65; PULSE 71; RESP 18; TEMP 97.8; O2SAT 97
[2024-07-25] MEDS ORDERED: GLUCAGON,HUMAN RECOMBINANT 1 MG VIAL IM PRN (00:45)
[2024-07-25] MEDS: INFLUENZA VIRUS VACCINE TVS (6MO+) 2024-25/PF 45 MCG/0.5 ML SYRINGE IM. ONE (05:24)
[2024-07-25] MEDS: INSULIN LISPRO 100 UNITS/ML SQ PRN (06:36)
[2024-07-25] MEDS: MetFORMIN HCL 500 MG TABLET PO SCH (06:37)
[2024-07-25 06:40] LABS: GLUCOMETER DEV NAME(LOC) BV2X.3; GLUCOSE,POINT OF CARE 257 MG/DL (70-110)
[2024-07-25 08:10] VITALS: BP 120/65; PULSE 82; RESP 16; TEMP 98; O2SAT 98
[2024-07-25 12:31] LABS: GLUCOMETER DEV NAME(LOC) BV2X.3; GLUCOSE,POINT OF CARE 289 MG/DL (70-110)
[2024-07-25] MEDS ORDERED: OLAN15TA98 PO (12:58)
[2024-07-25] MEDS ORDERED: SERT-439 PO (12:58)
[2024-07-25] MEDS: SERTRALINE HCL 50 MG TABLET PO SCH (13:58)
[2024-07-25 16:37] VITALS: BP 117/72; PULSE 68; RESP 17; TEMP 97.9; O2SAT 98
[2024-07-25 17:01] LABS: GLUCOMETER DEV NAME(LOC) BV2X.3; GLUCOSE,POINT OF CARE 313 MG/DL (70-110)
[2024-07-25] MEDS: OLANZapine 7.5 MG TABLET PO SCH (20:57)
[2024-07-25 21:55] LABS: GLUCOMETER DEV NAME(LOC) BV2X.3; GLUCOSE,POINT OF CARE 275 MG/DL (70-110)
[2024-07-25 23:58] VITALS: BP 122/70; PULSE 76; RESP 18; TEMP 97.6; O2SAT 98
[2024-07-26 07:01] LABS: GLUCOMETER DEV NAME(LOC) BV2X.3; GLUCOSE,POINT OF CARE 170 MG/DL (70-110)
[2024-07-26 08:30] LABS: BASOPHILS % (AUTO) 0.2 % (0.0-2.0); EOSINOPHILS % (AUTO) 0.3 % (1.0-6.0); HEMATOCRIT 42.7 % (36-46); HEMOGLOBIN 14.4 g/dL (12.0-16.0); LYMPHOCYTES # (AUTO) 2.7 K/uL (1.0-4.8); LYMPHOCYTES % (AUTO) 54.2 % (22.0-44.0); MEAN CORPUSCULAR HEMOGLOBIN 31.7 pg (26.0-34.0); MEAN CORPUSCULAR HGB CONC 33.7 G/dL (31.0-37.0); MEAN CORPUSCULAR VOLUME 94 fL (80-100); MONOCYTES # (AUTO) 0.3 K/uL (0.1-1.0); MONOCYTES % (AUTO) 6.3 % (2.0-9.0); NEUTROPHILS # (AUTO) 1.9 K/uL (1.8-7.7); PLATELET COUNT (AUTO) 177 K/uL (150-450); RED BLOOD CELL COUNT(AUTO) 4.53 MIL/uL (4.00-5.20); RED CELL DISTRIBUTION WIDTH 13.3 % (11.5-14.5); WHITE BLOOD COUNT (AUTO) 4.9 K/uL (4.5-11.0)
[2024-07-26 08:34] VITALS: BP 105/60; PULSE 62; RESP 16; TEMP 97.1; O2SAT 98
[2024-07-26 08:59] LABS: HEMOGLOBIN A1C 10.7 % (3.8-5.6)
[2024-07-26 09:02] LABS: ALANINE AMINOTRANSFERASE 35 U/L (12-78); ALBUMIN 3.2 g/dL (3.4-5.0); ALKALINE PHOSPHATASE 73 U/L (46-116); ANION GAP 8 mmol/L (8-16); ASPARTATE AMINOTRANSFERASE 19 U/L (15-37); BILIRUBIN,TOTAL 0.5 mg/dL (0.1-1.0); CALCIUM, TOTAL 9.1 mg/dL (8.8-10.5); CARBON DIOXIDE 30 mmol/L (22-29); CHLORIDE 103 mmol/L (98-107); CREATININE 0.53 mg/dL (0.60-1.30); FREE T4 (FREE THYROXINE) 1.18 ng/dL (0.76-1.46); GLOMERULAR FILTR. RATE CALC > 60 mL/min (>60); GLUCOSE,RANDOM 219 mg/dL (70-110); POTASSIUM 3.8 mmol/L (3.5-5.1); SODIUM SERUM 141 mmol/L (136-145); THYROID STIMULATING HORMONE 1.26 uIU/mL (0.36-3.74); TOTAL PROTEIN, SERUM 6.6 g/dL (6.4-8.2); UREA NITROGEN, BLOOD 11 mg/dL (7-18)
[2024-07-26 11:45] LABS: GLUCOMETER DEV NAME(LOC) BV2X.3; GLUCOSE,POINT OF CARE 260 MG/DL (70-110)
[2024-07-26 16:30] LABS: GLUCOMETER DEV NAME(LOC) BV2X.3; GLUCOSE,POINT OF CARE 337 MG/DL (70-110)
[2024-07-26 20:30] LABS: GLUCOMETER DEV NAME(LOC) BV2X.3; GLUCOSE,POINT OF CARE 189 MG/DL (70-110)
[2024-07-26 22:29] VITALS: BP 113/86; PULSE 87; RESP 18; TEMP 98; O2SAT 98
[2024-07-26] MEDS: ZOLPIDEM TARTRATE 10 MG TABLET PO PRN (23:54)
[2024-07-27 06:16] LABS: GLUCOMETER DEV NAME(LOC) BV2X.3; GLUCOSE,POINT OF CARE 254 MG/DL (70-110)
[2024-07-27 08:00] VITALS: BP 102/66; PULSE 58; RESP 17; TEMP 98.1; O2SAT 99
[2024-07-27 11:51] LABS: GLUCOMETER DEV NAME(LOC) BV2X.3; GLUCOSE,POINT OF CARE 268 MG/DL (70-110)
[2024-07-27 17:15] LABS: GLUCOMETER DEV NAME(LOC) BV2X.3; GLUCOSE,POINT OF CARE 339 MG/DL (70-110)
[2024-07-27 21:00] LABS: GLUCOMETER DEV NAME(LOC) BV2X.3; GLUCOSE,POINT OF CARE 277 MG/DL (70-110)
[2024-07-27 23:25] VITALS: BP 114/63; PULSE 62; RESP 18; TEMP 96.5; O2SAT 98
[2024-07-28 06:06] LABS: GLUCOMETER DEV NAME(LOC) BV2X.3; GLUCOSE,POINT OF CARE 266 MG/DL (70-110)
[2024-07-28 08:30] VITALS: BP 105/61; PULSE 65; RESP 17; TEMP 98; O2SAT 100
[2024-07-28 12:25] LABS: GLUCOMETER DEV NAME(LOC) BV2X.3; GLUCOSE,POINT OF CARE 245 MG/DL (70-110)
[2024-07-28 17:15] LABS: GLUCOMETER DEV NAME(LOC) BV2X.3; GLUCOSE,POINT OF CARE 299 MG/DL (70-110)
[2024-07-28 20:11] VITALS: BP 116/74; PULSE 70; RESP 18; TEMP 96.9; O2SAT 95
[2024-07-28 20:20] LABS: GLUCOMETER DEV NAME(LOC) BV2X.3; GLUCOSE,POINT OF CARE 285 MG/DL (70-110)
[2024-07-29 06:11] LABS: GLUCOMETER DEV NAME(LOC) BV2X.3; GLUCOSE,POINT OF CARE 179 MG/DL (70-110)
[2024-07-29 09:17] VITALS: BP 102/66; PULSE 63; RESP 18; TEMP 97.3; O2SAT 95
[2024-07-29 11:51] LABS: GLUCOMETER DEV NAME(LOC) BV2X.3; GLUCOSE,POINT OF CARE 218 MG/DL (70-110)
[2024-07-29 16:36] LABS: GLUCOMETER DEV NAME(LOC) BV2X.3; GLUCOSE,POINT OF CARE 370 MG/DL (70-110)
[2024-07-29 20:45] LABS: GLUCOMETER DEV NAME(LOC) BV2X.3; GLUCOSE,POINT OF CARE 295 MG/DL (70-110)
[2024-07-29 21:54] VITALS: BP 111/67; PULSE 72; RESP 16; TEMP 97.4; O2SAT 99
[2024-07-30 05:51] LABS: GLUCOMETER DEV NAME(LOC) BV2X.3; GLUCOSE,POINT OF CARE 221 MG/DL (70-110)
[2024-07-30 08:02] VITALS: BP 100/60; PULSE 76; RESP 16; TEMP 97.1; O2SAT 97
[2024-07-30 09:13] LABS: APPEARANCE,URINE HAZY (CLEAR); BILIRUBIN,URINE NEGATIVE (NEGATIVE); COLOR,URINE LIGHT YELLOW (YELLOW); GLUCOSE, URINE (UA) >=1000 mg/dL (NEGATIVE); KETONES,URINE TRACE mg/dL (NEGATIVE); LEUKOCYTE ESTERASE ,URINE SMALL (NEGATIVE); NITRATE,URINE NEGATIVE (NEGATIVE); OCCULT BLOOD,URINE NEGATIVE (NEGATIVE); PROTEIN,URINE NEGATIVE (NEGATIVE); SPECIFIC GRAVITIY, URINE 1.019 (1.003-1.030); UROBILINOGEN,URINE <=1.0 mg/dL (<=1.0)
[2024-07-30 09:21] LABS: BACTERIA,URINE Many /HPF (None Seen); RBC,URINE 0-2 /HPF (0-2); SQUAMOUS EPITHELIAL CELL,UR Moderate /LPF (None Seen)
[2024-07-30 11:30] LABS: GLUCOMETER DEV NAME(LOC) BV2X.3; GLUCOSE,POINT OF CARE 200 MG/DL (70-110)
[2024-07-30 16:31] LABS: GLUCOMETER DEV NAME(LOC) BV2X.3; GLUCOSE,POINT OF CARE 307 MG/DL (70-110)
[2024-07-30 20:52] VITALS: BP 104/66; PULSE 70; RESP 18; TEMP 97.5; O2SAT 98
[2024-07-30 21:00] LABS: GLUCOMETER DEV NAME(LOC) BV2X.3; GLUCOSE,POINT OF CARE 259 MG/DL (70-110)
[2024-07-31 06:16] LABS: GLUCOMETER DEV NAME(LOC) BV2X.3; GLUCOSE,POINT OF CARE 221 MG/DL (70-110)
[2024-07-31 08:10] VITALS: BP 100/60; PULSE 71; RESP 16; TEMP 97.6; O2SAT 97
[2024-07-31 11:25] LABS: GLUCOMETER DEV NAME(LOC) BV2X.3; GLUCOSE,POINT OF CARE 198 MG/DL (70-110)
[2024-07-31] MEDS: CEPHALEXIN MONOHYDRATE 500 MG CAPSULE PO SCH (17:26)
[2024-07-31 18:25] LABS: GLUCOMETER DEV NAME(LOC) BV2X.3; GLUCOSE,POINT OF CARE 362 MG/DL (70-110)
[2024-07-31 20:16] VITALS: BP 96/60; PULSE 81; RESP 16; TEMP 96.5; O2SAT 96
[2024-07-31 21:26] LABS: GLUCOMETER DEV NAME(LOC) BV2X.3; GLUCOSE,POINT OF CARE 273 MG/DL (70-110)
[2024-08-01 06:56] LABS: GLUCOMETER DEV NAME(LOC) BV2X.3; GLUCOSE,POINT OF CARE 191 MG/DL (70-110)
[2024-08-01 08:22] VITALS: BP 128/79; PULSE 88; RESP 18; TEMP 98; O2SAT 100
[2024-08-01 11:25] LABS: GLUCOMETER DEV NAME(LOC) BV2X.3; GLUCOSE,POINT OF CARE 227 MG/DL (70-110)
[2024-08-01 16:51] LABS: GLUCOMETER DEV NAME(LOC) BV2X.3; GLUCOSE,POINT OF CARE 270 MG/DL (70-110)
[2024-08-01 20:07] VITALS: BP 102/69; RESP 18; TEMP 98.1; O2SAT 97
[2024-08-01 20:36] LABS: GLUCOMETER DEV NAME(LOC) BV2X.3; GLUCOSE,POINT OF CARE 325 MG/DL (70-110)
[2024-08-02 06:50] LABS: GLUCOMETER DEV NAME(LOC) BV2X.3; GLUCOSE,POINT OF CARE 189 MG/DL (70-110)
[2024-08-02 08:20] VITALS: BP 91/59; PULSE 70; RESP 18; TEMP 97.9; O2SAT 100
[2024-08-02 11:56] LABS: GLUCOMETER DEV NAME(LOC) BV2X.3; GLUCOSE,POINT OF CARE 309 MG/DL (70-110)
[2024-08-02 16:56] LABS: GLUCOMETER DEV NAME(LOC) BV2X.3; GLUCOSE,POINT OF CARE 399 MG/DL (70-110)
[2024-08-02 20:32] VITALS: BP 127/69; RESP 18; TEMP 97; O2SAT 98
[2024-08-02 20:36] LABS: GLUCOMETER DEV NAME(LOC) BV2X.3; GLUCOSE,POINT OF CARE 272 MG/DL (70-110)
[2024-08-03 06:36] LABS: GLUCOMETER DEV NAME(LOC) BV2X.3; GLUCOSE,POINT OF CARE 213 MG/DL (70-110)
[2024-08-03 11:35] VITALS: BP 126/72; PULSE 67; RESP 16; TEMP 98; O2SAT 98
[2024-08-03 11:41] LABS: GLUCOMETER DEV NAME(LOC) BV2X.3; GLUCOSE,POINT OF CARE 243 MG/DL (70-110)
[2024-08-03 17:01] LABS: GLUCOMETER DEV NAME(LOC) BV2X.3; GLUCOSE,POINT OF CARE 318 MG/DL (70-110)
[2024-08-03 20:21] LABS: GLUCOMETER DEV NAME(LOC) BV2X.3; GLUCOSE,POINT OF CARE 283 MG/DL (70-110)
[2024-08-03 23:15] VITALS: BP 113/71; PULSE 63; RESP 16; TEMP 98; O2SAT 97
[2024-08-04 06:25] LABS: GLUCOMETER DEV NAME(LOC) BV2X.3; GLUCOSE,POINT OF CARE 198 MG/DL (70-110)
[2024-08-04 09:31] VITALS: BP 100/61; PULSE 74; RESP 16; TEMP 97.7; O2SAT 97
[2024-08-04 11:15] VITALS: BP 116/71; PULSE 70
[2024-08-04 11:36] LABS: GLUCOMETER DEV NAME(LOC) BV2X.3; GLUCOSE,POINT OF CARE 186 MG/DL (70-110)
[2024-08-04 16:41] LABS: GLUCOMETER DEV NAME(LOC) BV2X.3; GLUCOSE,POINT OF CARE 377 MG/DL (70-110)
[2024-08-04 20:35] LABS: GLUCOMETER DEV NAME(LOC) BV2X.3; GLUCOSE,POINT OF CARE 298 MG/DL (70-110)
[2024-08-04 21:34] VITALS: BP 119/60; PULSE 84; RESP 18; TEMP 97.8; O2SAT 99
[2024-08-05 06:16] LABS: GLUCOMETER DEV NAME(LOC) BV2X.3; GLUCOSE,POINT OF CARE 171 MG/DL (70-110)
[2024-08-05 08:10] VITALS: BP 110/59; PULSE 62; RESP 18; TEMP 97.6; O2SAT 96
[2024-08-05 13:06] LABS: GLUCOMETER DEV NAME(LOC) BV2X.3; GLUCOSE,POINT OF CARE 232 MG/DL (70-110)
[2024-08-05 16:35] LABS: GLUCOMETER DEV NAME(LOC) BV2X.3; GLUCOSE,POINT OF CARE 323 MG/DL (70-110)
[2024-08-05 20:00] VITALS: BP 101/68; PULSE 71; RESP 17; TEMP 96.5; O2SAT 96
[2024-08-05 20:35] LABS: GLUCOMETER DEV NAME(LOC) BV2X.3; GLUCOSE,POINT OF CARE 295 MG/DL (70-110)
[2024-08-06 06:41] LABS: GLUCOMETER DEV NAME(LOC) BV2X.3; GLUCOSE,POINT OF CARE 211 MG/DL (70-110)
[2024-08-06 08:18] VITALS: BP 98/59; PULSE 58; RESP 18; TEMP 98; O2SAT 99
[2024-08-06] MEDS ORDERED: METF-1211 PO ×2 (10:56→11:09)
[2024-08-06] MEDS ORDERED: OLAN7.5T22 PO (11:09)
[2024-08-06] MEDS ORDERED: SERT-439 PO (11:09)
[2024-08-06 11:45] LABS: GLUCOMETER DEV NAME(LOC) BV2X.3; GLUCOSE,POINT OF CARE 242 MG/DL (70-110)
== END 2024-08-06 12:00 | disposition home or self-care (01) | DRG 885 ==
LOC: EMS 15:33 → UNDOADMIN 21:41 → EDH 21:41 → B2X 23:46
PROVIDERS: ADMIT Psychiatry & Neurology Psychiatry; ATTEND Psychiatry & Neurology Psychiatry
PROC: GZHZZZZ Group Psychotherapy (ICD-10-PCS; principal; 2024-07-25)
PROC: GZ51ZZZ Individual Psychotherapy, Behavioral (ICD-10-PCS; 2024-07-25)
DX: F25.1 Schizoaffective disorder, depressive type (principal); E11.65 Type 2 diabetes mellitus with hyperglycemia; E87.1 Hypo-osmolality and hyponatremia; Z20.822 Contact with and (suspected) exposure to COVID-19; G47.00 Insomnia, unspecified; F15.10 Other stimulant abuse, uncomplicated; Z91.148 Patient's other noncompliance with medication regimen for other reason; Z79.899 Other long term (current) drug therapy
CPT/HCPCS: 80048; 80053; 80307; 81001; 82962; 83036; 84439; 84443; 85025; 87086; 87186; 99285; G0378; G0480